=== PATIENT | male | born 1955 | race Two or more races ===

== ENCOUNTER → 2018-02-08 | Outpatient (CLI) | payer OTHER ==
[~2018-02-08] VITALS: Ht 176.5 cm; Wt 95.3 kg
== END | disposition home or self-care (01) ==
LOC: Rad HDHVI 10:53
PROVIDERS: ATTEND Internal Medicine Cardiovascular Disease
DX: I10 Essential (primary) hypertension (principal); R07.89 Other chest pain
CPT/HCPCS: 78452; 93017; 93306; 96374; A9500